=== PATIENT | male | born 1995 | race Caucasian/White ===

== ENCOUNTER 2020-06-25 20:51 | Emergency (ER) | payer OTHER ==
[2020-06-25] MEDS ORDERED: IBUPROFEN 800 MG TAB ONE (21:05)
== END 2020-06-25 21:41 | disposition home or self-care (01) ==
LOC: EDH 20:51
DX: S60.121A Contusion of right index finger with damage to nail, initial encounter (principal); I10 Essential (primary) hypertension; W23.0XXA Caught, crushed, jammed, or pinched between moving objects, initial encounter; Y93.89 Activity, other specified; Y92.810 Car as the place of occurrence of the external cause; Y99.8 Other external cause status
CPT/HCPCS: 11740; 73140

== ENCOUNTER 2020-08-25 19:53 | Emergency (ER) | payer OTHER ==
[~2020-08-25] VITALS: Ht 188 cm; Wt 121.1 kg
[2020-08-25] MEDS ORDERED: NACL 0.9% 1000ML 1,000 ML IV ONE (20:08)
[2020-08-25] MEDS ORDERED: FAMOTIDINE 20MG VIAL IV ONE ×2 (20:15→20:38)
[2020-08-25] MEDS ORDERED: HYOSCYAMINE SULFATE 0.125 MG TAB.SUBL SL SCH (20:15)
[2020-08-25] MEDS ORDERED: HYOSCYAMINE SULFATE 0.125 MG TAB.SUBL SL ONE (20:38)
[2020-08-25 20:40] VITALS: BP 159/71
[2020-08-25 20:43] LABS: BASOPHILS % (AUTO) 1.1 % (0.0-5.0); EOSINOPHILS % (AUTO) 0.5 % (0.0-8.0); HEMATOCRIT 40.5 % (42-54); LYMPHOCYTES % (AUTO) 21.8 % (21.0-51.0); MEAN CORPUSCULAR HEMOGLOBIN 33.1 pg (27.0-33.0); MEAN CORPUSCULAR VOLUME 91.8 fL (79-99); MONOCYTES % (AUTO) 13.3 % (3.0-13.0); NEUTROPHILS % (AUTO) 62.9 % (40.0-77.0); PLATELET COUNT (AUTO) 213 K/uL (130-400); RED BLOOD CELL COUNT(AUTO) 4.41 MIL/uL (4.50-6.20); RED CELL DISTRIBUTION WIDTH 11.4 % (11.0-15.5); WHITE BLOOD COUNT (AUTO) 7.5 K/uL (4.8-10.8)
[2020-08-25 21:01] LABS: INR 1.07 (0.85-1.15); PROTHROMBIN TIME 11.6 SEC (9.6-11.6)
[2020-08-25 21:03] LABS: ALBUMIN 4.1 g/dL (3.5-5.0); BILIRUBIN,TOTAL 1.6 mg/dL (0.2-1.0); CREATININE 0.7 mg/dL (0.5-1.5); MAGNESIUM 1.8 mg/dL (1.80-2.40); POTASSIUM 3.8 mmol/L (3.5-5.1); TOTAL PROTEIN, SERUM 7.9 g/dL (6.0-8.3)
[2020-08-25] MEDS ORDERED: NACL 0.9% IV SCH (21:15)
[2020-08-25] MEDS ORDERED: NACL 0.9% IV ONE (22:15)
[2020-08-25 22:35] VITALS: BP 125/62
[2020-08-26] MEDS ORDERED: FAMO-136 PO (01:04)
[2020-08-26 01:22] VITALS: BP 128/68
== END 2020-08-26 01:38 | disposition home or self-care (01) ==
LOC: EDH 20:07
DX: R07.89 Other chest pain (principal); R03.0 Elevated blood-pressure reading, without diagnosis of hypertension; R79.89 Other specified abnormal findings of blood chemistry; R16.0 Hepatomegaly, not elsewhere classified
CPT/HCPCS: 36415; 71045; 76705; 80053; 82550 ×2; 83690; 83735; 84484 ×2; 85025; 85610; 93005 ×2; 96361; 96374; 99285; J3490; J7030

== ENCOUNTER 2021-05-08 02:01 | Emergency (ER) | payer OTHER ==
[~2021-05-08] VITALS: Ht 190.5 cm; Wt 142.0 kg
[~2021-05-08 02:01] MED LIST: FAMO-136 PO
[2021-05-08] MEDS ORDERED: IBUPROFEN 600 MG TABLET PO ONE (03:00)
[2021-05-08 03:21] VITALS: BP 134/73
== END 2021-05-08 03:39 | disposition home or self-care (01) ==
LOC: EDH 02:01
DX: S92.514A Nondisplaced fracture of proximal phalanx of right lesser toe(s), initial encounter for closed fracture (principal); I10 Essential (primary) hypertension; F41.9 Anxiety disorder, unspecified; Z79.899 Other long term (current) drug therapy; W22.8XXA Striking against or struck by other objects, initial encounter; Y93.89 Activity, other specified; Y92.89 Other specified places as the place of occurrence of the external cause; Y99.8 Other external cause status
CPT/HCPCS: 73630